=== PATIENT | female | born 1990 | race African-American/Black ===

== ENCOUNTER 2018-12-11 14:42 | Inpatient (IN) ==
[2018-12-11] MEDS ORDERED: BUTORPHANOL 2 MG/ML VIAL IV PRN (15:40)
[2018-12-11] MEDS ORDERED: ONDANSETRON 4 MG/2 ML VIAL IV PRN (15:40)
[2018-12-11] MEDS ORDERED: MEPERIDINE 50 MG/1 ML VIAL IM PRN (15:40)
[2018-12-11] MEDS ORDERED: DINOPROSTONE VAG GEL 10 MG SYRINGE VAG ONE (16:03)
[2018-12-11 16:23] LABS: Basophils % 0.3 % (0.0-0.8); Eosinophils # 0.2 10*3/uL (0.0-0.87); Eosinophils % 1.2 % (0.00-10.9); Hematocrit 34.2 VOL% (35.7-47.0); Hemoglobin 11.7 GM/DL (12.0-16.0); Immature Granulocytes % 1.5 %; Immature Granulocytes Absolute 0.19 #; Lymphocytes # 1.9 10*3/uL (1.4-4.0); Lymphocytes % 14.5 % (21.3-54.2); Mean Corpuscular HGB Conc 34.2 GM/DL (32-36); Mean Corpuscular Volume 94.2 FL (87-102); Monocytes % 9.7 % (1.7-12.7); Neutrophils % 72.8 % (38.7-73.9); Platelet Count 191 T/CUMM (130-400); Red Blood Count 3.63 MC/CUMM (3.8-5.5); Red Cell Distribution Width 12.7 % (9.3-17.3); White Blood Count 12.9 T/CUMM (4-12)
[2018-12-11 16:40] LABS: Albumin 2.8 G/DL (3.4-5.0); Bilirubin,Total 0.4 MG/DL (0.2-1.0); Calcium 8.5 MG/DL (8.5-10.1); Osmolality,Calculated 268.8 MOS/KG (273-304); Uric Acid 3.8 MG/DL (2.6-6.0)
[2018-12-11] MEDS: LACTATED RINGERS 1,000 ML IV SCH (18:10)
[2018-12-12] MEDS ORDERED: OXYTOCIN/LR 20 UNIT/1,000 ML BAG IV SCH ×2 (00:01→08:00)
[2018-12-12] MEDS: LACTATED RINGERS 1,000 ML IV SCH ×2 (01:31→08:09)
[2018-12-12] MEDS ORDERED: diphenhydrAMINE 50 MG/1 ML VIAL IV PRN (06:59)
[2018-12-12] MEDS ORDERED: ONDANSETRON 4 MG/2 ML VIAL IV ONE (06:59)
[2018-12-12] MEDS ORDERED: LACTATED RINGERS 1,000 ML IV ONE (06:59)
[2018-12-12] MEDS ORDERED: ePHEDrine 50 MG/ML AMP IV PRN (06:59)
[2018-12-12] MEDS ORDERED: CITRIC ACID/SODIUM CITRATE 30 ML UDCUP PO ONE (06:59)
[2018-12-12] MEDS ORDERED: FAMOTIDINE 20 MG/2 ML VIAL IV ONE (06:59)
[2018-12-12] MEDS ORDERED: NALOXONE 0.4 MG/ML VIAL IV PRN (06:59)
[2018-12-12] MEDS ORDERED: fentaNYL 2 MCG/ROPIV 0.2% EPID 100 ML EPIDURAL SCH (07:00)
[2018-12-12] MEDS ORDERED: LACTATED RINGERS 1,000 ML IV SCH (07:00)
[2018-12-12 10:58] LABS: Apearance,Urine CLEAR (Clear); Bilirubin,Urine Negative (Negative); Blood, Urine Moderate mg/dL (Negative); Glucose,Urine (UA) Negative (Negative); Ketones,Urine Negative (Negative); Mucus,Urine Occasional /LPF (Occasional); Nitrite,Urine Negative (Negative); Protein,Urine Negative; RBC,Urine 84 /HPF (0-4); Squamous Epithelial Cell,Urine Occasional /HPF (0-10); Urine Color Yellow (Yellow); Urine Specific Gravity 1.017 (1.001-1.035); WBC,Urine 1 /HPF (0-6)
[2018-12-12] MEDS ORDERED: miSOPROStoL 200 MCG TABLET ONE (11:19)
[2018-12-12 13:01] LABS: Cord Venous Blood HCO3 21.1 MMOL/L; Cord Venous Blood PCO2 37.5 MMHG; Cord Venous Blood PO2 40.1
[2018-12-12] MEDS ORDERED: WITCH HAZEL PADS 100/JAR TOP PRN (16:18)
[2018-12-12] MEDS ORDERED: MEASLES/MUMPS/RUBELLA VACCINE 0.5 ML VIAL SUBCUT ONE (16:18)
[2018-12-12] MEDS ORDERED: HYDROCORTISONE 2.5% RECTAL CREAM 30 GM TUBE TOP PRN (16:18)
[2018-12-12] MEDS ORDERED: BISACODYL 10 MG SUPP RECTAL PRN (16:18)
[2018-12-12] MEDS ORDERED: DIPH/TET/ACEL PERT BOOSTER VACCINE 0.5 ML VIAL IM ONE (16:18)
[2018-12-12] MEDS ORDERED: ACETAMINOPHEN 325 MG TABLET PO PRN (16:18)
[2018-12-12] MEDS ORDERED: BENZOCAINE 20%/MENTHOL 0.5% SPRAY 56 GM CAN TOP PRN (16:18)
[2018-12-12] MEDS ORDERED: RHO(D) IMMUNE GLOBULIN 300 MCG SYRINGE IM ONE (16:18)
[2018-12-12] MEDS ORDERED: LANOLIN 50% CREAM 0.3 OZ TUBE TOP PRN (16:18)
[2018-12-12] MEDS ORDERED: oxyCODONE/ACETAMINOPHEN 5-325 MG TABLET PO PRN (16:18)
[2018-12-12] MEDS ORDERED: OXYTOCIN/LR 20 UNIT/1,000 ML BAG IV ONE (16:18)
[2018-12-12] MEDS: DOCUSATE SODIUM 100 MG CAPSULE PO SCH (21:07)
[2018-12-13] MEDS: oxyCODONE/ACETAMINOPHEN 5-325 MG TABLET PO PRN ×2 (03:36→14:35)
[2018-12-13 05:55] LABS: Basophils # 0.1 10*3/uL (0.0-0.2); Basophils % 0.4 % (0.0-0.8); Eosinophils # 0.1 10*3/uL (0.0-0.87); Eosinophils % 0.6 % (0.00-10.9); Hematocrit 31.8 VOL% (35.7-47.0); Hemoglobin 10.5 GM/DL (12.0-16.0); Immature Granulocytes % 0.7 %; Immature Granulocytes Absolute 0.12 #; Lymphocytes % 11.6 % (21.3-54.2); Mean Platelet Volume 11.6 FL (9.6-12.0); Neutrophils % 79.7 % (38.7-73.9); Platelet Count 172 T/CUMM (130-400); Red Blood Count 3.28 MC/CUMM (3.8-5.5); Red Cell Distribution Width 12.8 % (9.3-17.3); White Blood Count 17.1 T/CUMM (4-12)
[2018-12-13] MEDS: IBUPROFEN 800 MG TABLET PO PRN ×2 (07:24→14:34)
[2018-12-13] MEDS: DOCUSATE SODIUM 100 MG CAPSULE PO SCH ×2 (09:58→21:10)
[2018-12-14] MEDS: DOCUSATE SODIUM 100 MG CAPSULE PO SCH (08:53)
[2018-12-14] MEDS: IBUPROFEN 800 MG TABLET PO PRN (08:53)
[2018-12-14] MEDS: oxyCODONE/ACETAMINOPHEN 5-325 MG TABLET PO PRN (08:54)
[2018-12-14 10:34] VITALS: BP 101/60
== END 2018-12-14 13:00 | disposition home or self-care (01) | DRG 807 ==
LOC: N.LDOUT 14:42 → N.LD 14:45 → N.OB 12-12 16:05
PROVIDERS: ADMIT Obstetrics & Gynecology; ATTEND Obstetrics & Gynecology